=== PATIENT | male | born 1965 | race Caucasian/White ===

== ENCOUNTER 2022-11-16 14:05 | Outpatient (CLI) | payer BC, SELFPAY | END 2022-11-16 14:06 | disposition home or self-care (01) | LOC: LKVREF 14:05 | PROVIDERS: PCP Family Medicine; Visit Provider Emergency Medicine | DX: I10 Essential (primary) hypertension (principal); E78.00 Pure hypercholesterolemia, unspecified | CPT/HCPCS: 80048 ==